=== PATIENT | female | born 1940 | race African-American/Black ===

== ENCOUNTER 2017-07-05 19:22 | Emergency (ER) | payer OTHER ==
[~2017-07-05] VITALS: Ht 165.1 cm; Wt 81.7 kg
[~2017-07-05 19:22] MED LIST: ADULT LOW DOSE81 MG PO; BENICAR HCT 401 EACH PO; CIPROFLOXACIN500 M1 PO; FISH OIL 1,0001 EAC5 PO; GLUCOPHAGE500 MG PO; NORCO 5-325 TA1 EACH PO; SIMVASTATIN40 MG PO
[2017-07-05 19:34] VITALS: BP 165/83
[2017-07-05] MEDS ORDERED: NORFLEX100 MG PO (21:52)
== END 2017-07-05 21:52 | disposition home or self-care (01) ==
LOC: ER 19:22
DX: M54.6 Pain in thoracic spine (principal); G89.29 Other chronic pain; I10 Essential (primary) hypertension; K21.9 Gastro-esophageal reflux disease without esophagitis; E11.9 Type 2 diabetes mellitus without complications; Z90.710 Acquired absence of both cervix and uterus; E78.00 Pure hypercholesterolemia, unspecified; Z88.1 Allergy status to other antibiotic agents; V89.2XXA Person injured in unspecified motor-vehicle accident, traffic, initial encounter; Y93.89 Activity, other specified; Y92.89 Other specified places as the place of occurrence of the external cause; Y99.8 Other external cause status